=== PATIENT | male | born 1965 | race Caucasian/White ===

== ENCOUNTER → 2016-08-08 | Outpatient (CLI) | payer BC ==
--- NOTE | 2016-08-08 18:55 | CT ---
EXAMINATION TYPE: CT chest w con DATE OF EXAM: 08/08/2016 6:30 PM COMPARISON: NONE HISTORY: Pt states of JAMES x6 months. CT DLP: 411.0 mGycm Automated exposure control for dose reduction was used. CONTRAST: CT scan of the chest is performed with IV Contrast, patient injected with 90 mL of Omnipaque 300. The re are 3-D post processed images. FINDINGS: The lungs are clear of infiltrate. There are 5 mm subpleural low density nodules in the lateral left lung base. There is no evidence of a pulmonary mass. There is no pleural effusion. There is no bronch iectasis. I see no filling defects in the pulmonary arteries. There is no mediastinal adenopathy. The re is no evidence of thoracic aortic aneurysm or dissection. Heart size is normal. There is no perica rdial effusion. Bony thorax appears intact. Ascending aorta measures 3.7 cm. CONCLUSION: Minimal ectasia of the ascending aorta. No evidence of dissection or aneurysm. Feint subpleural nodul es in the left lower lobe of doubtful significance. No evidence of any significant lung disease.
== END | disposition home or self-care (01) ==
LOC: RADCTMAIN 17:59
PROVIDERS: ATTEND Physician Assistant
DX: I77.810 Thoracic aortic ectasia (principal)
CPT/HCPCS: 71260; Q9967

== ENCOUNTER → 2017-02-05 | Outpatient (CLI) | payer BC ==
--- NOTE | 2017-02-05 07:39 | US ---
EXAMINATION TYPE: US abdomen limited DATE OF EXAM: 02/05/2017 COMPARISON: NONE CLINICAL HISTORY: 51-year-old male R74.8 Elevated Liver Enzymes. Pt on cholesterol meds. TECHNIQUE: Multiple sonographic images of the right upper quadrant are obtained. FINDINGS: Liver Length: 14.6 cm Gallbladder Wall: 0.1 cm CBD: 3.1 mm Right Kidney: 11.3x4.3x4.3 cm Pancreas: Obscured by bowel gas Liver: Markedly echogenic and attenuating. This secondarily limits assessment for focal lesion. There is some hypoechogenicity along the gallbladder fossa suggesting fatty sparing. Gallbladder: No abnormal gallbladder distention, wall thickening, pericholecystic fluid, or shadowing calculi. There is a 5 mm nodular echogenic focus along the posterior wall that does not appear to mo ve, possible gallbladder wall polyp. Evidence for sonographic Gurrola's sign: No CBD: wnl Right Kidney: No hydronephrosis IMPRESSION: 1. Marked hepatic steatosis. Correlate with LFTs, lipid profile, and patient risk factors. 2. Six-month follow-up gallbladder ultrasound recommended to reassess the possible 5 mm gallbladder w all polyp.
== END | disposition home or self-care (01) ==
LOC: RADUSWWP 06:59
PROVIDERS: ATTEND Family Medicine
DX: K76.0 Fatty (change of) liver, not elsewhere classified (principal)
CPT/HCPCS: 76705

== ENCOUNTER → 2017-11-24 | Outpatient (CLI) | payer BC ==
--- NOTE | 2017-11-24 16:00 | US ---
EXAMINATION TYPE: US thyroid st tissue head/neck DATE OF EXAM: 11/24/2017 COMPARISON: NONE CLINICAL HISTORY: E03.9 HYPOTHYROIDISM. Recent abnormal labs, pt states being on thyroid meds x 6 yea rs GLAND SIZE: Right Lobe: 4.5 x 2.1 x 1.6 cm Overall Parenchyma: heterogenous Left Lobe: 3.9 x 1.7 x 1.3 cm Overall Parenchyma: heterogeneous Isthmus Thickness: 0.5 cm NODULES RIGHT: # of nodules measured on right: 1 1. 0.9 X 0.8 x 0.9 cm isoechoic solid nodule at the mid pole with well-defined margins; This nodul e is wider than tall and shows no intranodular vascularity. Prior size: No prior LEFT: # of nodules measured on left: 1 1. 0.7 X 0.5 x 0.6 cm echogenic solid nodule at the mid pole with well-defined margins; This nodul e is wider than tall and shows no intranodular vascularity. Prior size: No prior Bilateral neck scanned, no evidence of lymphadenopathy. Heterogeneous thyroid with sub-centimeter nod ules within each lobe. IMPRESSION: Correlate for thyroiditis, multinodular goiter
== END | disposition home or self-care (01) ==
LOC: RADUSWWP 15:31
PROVIDERS: ATTEND Family Medicine
DX: E04.2 Nontoxic multinodular goiter (principal)
CPT/HCPCS: 76536